=== PATIENT | male | born 1980 | race Caucasian/White ===

== ENCOUNTER 2018-01-14 15:06 | Emergency (ER) | payer OTHER ==
[~2018-01-14] VITALS: Ht 177.8 cm; Wt 83.9 kg
[2018-01-14] MEDS ORDERED: HYDROCODONE/APAP 7.5MG-325MG 1 EA TAB PO PRN (15:15)
--- NOTE | 2018-01-14 16:42 | Diagnostic Imaging Report ---
KNEE LEFT 4 VIEWS - 4 views HISTORY: Pain, fall COMPARISON: None available. FINDINGS: Bones: No acute displaced fracture. Osseous alignment is within normal limits. Joints: The joint spaces are well-maintained. Soft tissues: The soft tissues appear unremarkable. IMPRESSION: No acute radiographic abnormality. Signed by: Dr. Woo Perez MD on 01/14/2018 4:39 PM
[2018-01-14 17:06] VITALS: BP 142/89
== END 2018-01-14 17:03 | disposition home or self-care (01) ==
LOC: ER 15:06
DX: S83.422A Sprain of lateral collateral ligament of left knee, initial encounter (principal); X50.1XXA Overexertion from prolonged static or awkward postures, initial encounter; Y93.02 Activity, running; Y92.89 Other specified places as the place of occurrence of the external cause
CPT/HCPCS: 99283